=== PATIENT | female | born 1975 | race Caucasian/White ===

== ENCOUNTER 2024-05-13 06:50 | Observation (INO) | payer SELFPAY ==
--- OUTSIDE RECORDS SUMMARY | 2024-05-13 06:55 | XMS REPORT | Continuity of Care Document ---
Author Name Unknown Address [address] [place] [address] [facility] [place] Address [address] [place] [address] Care Team Providers Care Fabric Normalizer Name Role Phone Randall Michel Attending Clinician Unavailable Payers Payer Name Policy Type Policy Number Effective Date Expirati on Date Source [employer] 53 [id number] 2020 00:00:00 [facility] Problems Condition Name Condition Details Condition Category Status Onset Date Resolution Date Last Treatment Date Treating Clinician Comments Source [id number] Mixed hyperlipid emia Problem [facility] [id number] Primary hypertensi on Problem [facility] Anxiety disorder Anxiety disorder, unspecifie d Problem [facility] [id number] Seasonal allergies Problem [facility] [id number] Controlled mild persistent asthma with allergic rhinitis Problem [facility] Allergies, Adverse Reactions, Alerts Allergy Name Allergy Type Status Severity Reaction(s) Onset Date Inactive Date Treating Clinician Comments Source hydrochl orothiaz colby / lisinopr il hydrochl orothiaz colby / lisinopr il Active nausea and vomiting [facility] Social History Social Habit Start Date Stop Date Quantity Comments Source Sex Assigned At [facility] History of Tobacco Use [facility] Smoking Status Start Date Stop Date Source Unknown if ever smoked Commo n [facility] Never Smoker [facility] Medications Ordered Medication Name Filled Medication Name Start Date Stop Date Current Medication? Ordering Clinician Indication Dosage Frequency Signature (SIG) Comments Components Source Atorvastati n Calcium 20 MG Atorvastati n Calcium 20 MG 09-27 00:00: 00 No 1{table t} QD Atorvastat in Calcium 20 MG Losartan Potassium-H CTZ 100-12.5 MG Losartan Potassium-H CTZ 100-12.5 MG No 1{table t} QD Losartan Potassium- HCTZ 100-12.5 MG busPIRone HCl 30 MG busPIRone HCl 30 MG No 1{table t} BID busPIRone HCl 30 MG Immunizations Ordered Immunization Name Filled Immunization Name Date Status Comments Source Afluria Afluria 2021-01-07 11:32:00 Completed [facility] Afluria Afluria 2021-01-07 11:32:00 Completed [facility] Afluria Afluria 2021-01-07 11:32:00 Completed [facility] Adacel (Tdap) Adacel (Tdap) 2020-10-08 15:47:00 Completed [facility] Adacel (Tdap) Adacel (Tdap) 2020-10-08 15:47:00 Completed [facility] Adacel (Tdap) Adacel (Tdap) 2020-10-08 15:47:00 Completed [facility] Afluria Afluria Unknown Completed [facility] Adacel (Tdap) Adacel (Tdap) Unknown Completed Co on [facility] Afluria Afluria Unknown Completed [facility] Adacel (Tdap) Adacel (Tdap) Unknown Completed Co mmon [facility] Afluria Afluria Unknown Completed [facility] Adacel (Tdap) Adacel (Tdap) Unknown Completed Co [facility] Afluria Afluria Unknown Completed Common [facility] Adacel (Tdap) Adacel (Tdap) Unknown Completed Co [facility] Afluria Afluria Unknown Completed Common [facility] Adacel (Tdap) Adacel (Tdap) Unknown Completed Co [facility] Afluria Afluria Unknown Completed Common [facility] Adacel (Tdap) Adacel (Tdap) Unknown Completed Co [facility] Vital Signs Vital Name Observation Time Observation Value Comments S ource height 2024-03-07 08:00:00 60 [in_i] Commo n [facility] weight 2024-03-07 08:00:00 116 [lb_av] Comm on [facility] bmi 2024-03-07 08:00:00 22.65 kg/m2 Comm on [facility] height 2023-11-23 09:00:00 60 [in_i] Commo n [facility] weight 2023-11-23 09:00:00 121 [lb_av] Comm on [facility] bmi 2023-11-23 09:00:00 23.63 kg/m2 Comm on [facility] blood pressure systolic 2023-11-23 09:00:00 128 mm[Hg] Common [facility] blood pressure diastolic 2023-11-23 09:00:00 84 mm[Hg] Common [facility] height 2023-11-23 09:00:00 60 [in_i] Commo n [facility] weight 2023-11-23 09:00:00 121 [lb_av] Comm on [facility] bmi 2023-11-23 09:00:00 23.63 kg/m2 Comm on [facility] blood pressure systolic 2023-11-23 09:00:00 128 mm[Hg] Common [facility] blood pressure diastolic 2023-11-23 09:00:00 84 mm[Hg] Common [facility] height 2023-09-28 11:20:00 60 [in_i] Commo n [facility] weight 2023-09-28 11:20:00 124.0 [lb_av] Co [facility] temperature 2023-09-28 11:20:00 97.9 [degF] Com mon [facility] bmi 2023-09-28 11:20:00 24.21 kg/m2 Comm on [facility] oximetry 2023-09-28 11:20:00 99 % Commo n [facility] respiratory rate 2023-09-28 11:20:00 17 /min [facility] blood pressure systolic 2023-09-28 11:20:00 127 mm[Hg] Common [facility] blood pressure diastolic 2023-09-28 11:20:00 78 mm[Hg] [facility] height 2023-09-16 11:20:00 60 [in_i] Commo n [facility] weight 2023-09-16 11:20:00 127.0 [lb_av] Co [facility] temperature 2023-09-16 11:20:00 98.2 [degF] Com [facility] bmi 2023-09-16 11:20:00 24.8 kg/m2 Commo n [facility] oximetry 2023-09-16 11:20:00 99 % Commo n [facility] respiratory rate 2023-09-16 11:20:00 17 /min [facility] blood pressure systolic 2023-09-16 11:20:00 137 mm[Hg] [facility] blood pressure diastolic 2023-09-16 11:20:00 80 mm[Hg] Common [facility] height 2023-02-18 09:20:00 60 [in_i] Commo n [facility] weight 2023-02-18 09:20:00 143 [lb_av] Comm on [facility] bmi 2023-02-18 09:20:00 27.92 kg/m2 Comm on [facility] height 2023-01-19 13:00:00 60 [in_i] Commo n [facility] weight 2023-01-19 13:00:00 151.4 [lb_av] Co mmon [facility] temperature 2023-01-19 13:00:00 97.9 [degF] Com mon [facility] bmi 2023-01-19 13:00:00 29.57 kg/m2 Comm on [facility] oximetry 2023-01-19 13:00:00 98 % Commo n [facility] respiratory rate 2023-01-19 13:00:00 17 /min Common [facility] blood pressure systolic 2023-01-19 13:00:00 140 mm[Hg] Common [facility] blood pressure diastolic 2023-01-19 13:00:00 78 mm[Hg] Common [facility] height 2022-04-29 16:00:00 60 [in_i] Commo n [facility] weight 2022-04-29 16:00:00 149.0 [lb_av] Co mmon [facility] temperature 2022-04-29 16:00:00 97.9 [degF] Com mon [facility] bmi 2022-04-29 16:00:00 29.1 kg/m2 Commo n [facility] oximetry 2022-04-29 16:00:00 99 % Commo n [facility] respiratory rate 2022-04-29 16:00:00 18 /min Common [facility] blood pressure systolic 2022-04-29 16:00:00 138 mm[Hg] [facility] blood pressure diastolic 2022-04-29 16:00:00 88 mm[Hg] Common [facility] height 2021-10-28 16:20:00 60 [in_i] Commo n [facility] weight 2021-10-28 16:20:00 142.5 [lb_av] Co [facility] temperature 2021-10-28 16:20:00 98.1 [degF] Com [facility] bmi 2021-10-28 16:20:00 27.83 kg/m2 Comm on [facility] oximetry 2021-10-28 16:20:00 100 % Commo n [facility] respiratory rate 2021-10-28 16:20:00 18 /min [facility] blood pressure systolic 2021-10-28 16:20:00 139 mm[Hg] Common [facility] blood pressure diastolic 2021-10-28 16:20:00 87 mm[Hg] [facility] height 2021-06-11 09:00:00 60 [in_i] Commo n [facility] weight 2021-06-11 09:00:00 137.2 [lb_av] Co [facility] temperature 2021-06-11 09:00:00 97.9 [degF] Com [facility] bmi 2021-06-11 09:00:00 26.79 kg/m2 Comm on [facility] oximetry 2021-06-11 09:00:00 100 % Commo n [facility] respiratory rate 2021-06-11 09:00:00 18 /min [facility] blood pressure systolic 2021-06-11 09:00:00 128 mm[Hg] Common [facility] blood pressure diastolic 2021-06-11 09:00:00 80 mm[Hg] Common [facility] height 2021-02-10 13:00:00 60 [in_i] Commo n [facility] weight 2021-02-10 13:00:00 129.8 [lb_av] Co mmon [facility] temperature 2021-02-10 13:00:00 96.8 [degF] Com mon [facility] bmi 2021-02-10 13:00:00 25.35 kg/m2 Comm on [facility] oximetry 2021-02-10 13:00:00 97 % Commo n [facility] respiratory rate 2021-02-10 13:00:00 18 /min [facility] blood pressure systolic 2021-02-10 13:00:00 130 mm[Hg] [facility] blood pressure diastolic 2021-02-10 13:00:00 84 mm[Hg] [facility] height 2021-01-07 11:20:00 60 [in_i] Commo n [facility] weight 2021-01-07 11:20:00 126.4 [lb_av] Co on [facility] temperature 2021-01-07 11:20:00 97.2 [degF] Com [facility] bmi 2021-01-07 11:20:00 24.68 kg/m2 Comm on [facility] oximetry 2021-01-07 11:20:00 99 % Commo n [facility] respiratory rate 2021-01-07 11:20:00 18 /min [facility] blood pressure systolic 2021-01-07 11:20:00 140 mm[Hg] [facility] blood pressure diastolic 2021-01-07 11:20:00 100 mm[Hg] [facility] Encounters Start Date/Time End Date/Time Encounter Type Admission Type Attending [facility] Care Facility Care Department Encounter ID Source 2024-05-08 11:37:00 Outpatient Randall Michel [facility] [id number] [facility] 2024-05-04 11:02:00 Outpatient Michel, Avnee [facility]C [facility] [id number] [facility] 2024-05-03 08:41:00 Outpatient Michel, Avnee [facility]MLC [facility] [id number] [facility] 2024-05-01 14:36:00 Outpatient Michel, Avnee [facility]MLC [facility] [id number] [facility] 2023-11-24 15:52:00 Outpatient Michel, Avnee [facility]LMLC ST[facility] [id number] [facility] 2023-11-18 16:17:00 Outpatient Michel, Avnee STLMLC ST[facility] [id number] [facility] 2023-08-10 10:56:00 Outpatient Michel, Avnee STLMLC ST[facility] [id number] [facility] 2023-08-06 11:11:00 Outpatient Michel, Avnee [facility]LMLC ST[facility] [id number] [facility] 2023-02-18 08:44:00 Outpatient Michel, Avnee [facility]MLC ST[facility] [id number] [facility] 2023-02-16 09:38:01 Outpatient Michel, Avnee [facility]MLC [facility] [id number] [facility] 2023-01-15 13:41:00 Outpatient Michel, Avnee [facility]MLC ST[facility] [id number] [facility] 2022-05-04 14:09:01 Outpatient Michel, Avnee STLMLC ST[facility] [id number] [facility] 2022-04-27 08:06:00 Outpatient Michel, Avnee STLMLC ST[facility] [id number] [facility] 2021-10-27 14:59:02 Outpatient Michel, Avnee STLMLC ST[facility] [id number] [facility] 2021-06-11 09:15:03 Outpatient Michel, Avnee [facility]LMLC ST[facility] [id number] [facility] 2021-04-02 14:05:10 Outpatient Michel, Avnee STLMLC ST[facility] [id number] [facility] 2021-04-02 13:34:23 Outpatient Michel, Avnee [facility]MLC ST[facility] [id number] [facility] 2021-04-02 13:33:56 Outpatient Michel, Avnee STLMLC ST[facility]C [id number] [facility] 2021-04-02 13:31:38 Outpatient Michel, Avnee STLMLC ST[facility]C [id number] [facility] 2021-04-02 13:30:30 Outpatient Michel, Avnee STLMLC ST[facility] [id number] [facility] 2021-04-02 13:24:50 Outpatient [facility] ST[facility] [id number] [facility] 2024-03-07 00:00:00 2024-03-07 00:00:00 OFFICE VISIT ESTAB PT LEVEL 4 [facility]LMLC STLMLC [id number] [facility] 2024-01-14 00:00:00 2024-01-14 00:00:00 (TEL) STLMLC STL[facility]C [id number] [facility] 2024-01-03 00:00:00 2024-01-03 00:00:00 (TEL) STLMLC STL[facility]C [id number] [facility] 2023-12-05 00:00:00 2023-12-05 00:00:00 (TEL) STLMLC STL[facility]C [id number] [facility] 2023-11-23 00:00:00 2023-11-23 00:00:00 OFFICE VISIT ESTAB PT LEVEL 3 [facility]LMLC STLMLC [id number] [facility] 2023-10-18 00:00:00 2023-10-18 00:00:00 (TEL) STLMLC STLMLC [id number] [facility] 2023-10-13 00:00:00 2023-10-13 00:00:00 (TEL) STLMLC STLMLC [id number] [facility] 2023-09-28 00:00:00 2023-09-28 00:00:00 OFFICE VISIT ESTAB PT LEVEL 4 [facility]C STL[facility]C [id number] [facility] 2023-09-27 00:00:00 2023-09-27 00:00:00 (TEL) STLMLC STLMLC [id number] [facility] 2023-09-21 00:00:00 2023-09-21 00:00:00 (TEL) STLMLC STLMLC [id number] [facility] 2023-09-16 00:00:00 2023-09-16 00:00:00 PREV VISIT EST AGE 40-64 STLMLC STLMLC [id number] [facility] 2023-09-08 00:00:00 2023-09-08 00:00:00 (TEL) STLMLC STLMLC [id number] [facility] 2023-07-05 00:00:00 2023-07-05 00:00:00 (TEL) STLMLC STLMLC [id number] [facility] 2023-02-18 00:00:00 2023-02-18 00:00:00 OFFICE VISIT ESTAB PT LEVEL 3 STLMLC STL[facility]C [id number] [facility] 2023-01-21 00:00:00 2023-01-21 00:00:00 (TEL) STLMLC STLMLC [id number] [facility] 2023-01-19 00:00:00 2023-01-19 00:00:00 OFFICE VISIT ESTAB PT LEVEL 3 [facility]C STL[facility]C [id number] [facility] 2022-04-29 00:00:00 2022-04-29 00:00:00 OFFICE VISIT ESTAB PT LEVEL 3 [facility]C STL[facility]C [id number] [facility] 2021-10-28 00:00:00 2021-10-28 00:00:00 (WELLNESS) Wellness Visit STLMLC STLMLC [id number] [facility] 2021-10-13 00:00:00 2021-10-13 00:00:00 (TEL) STLMLC STLMLC [id number] [facility] 2021-10-08 00:00:00 2021-10-08 00:00:00 (TEL) STLMLC STLMLC [id number] [facility] 2021-06-11 00:00:00 2021-06-11 00:00:00 OFFICE VISIT EST PT LEVEL 3 STLMLC STLMLC [id number] [facility] 2021-06-09 00:00:00 2021-06-09 00:00:00 (TEL) STLMLC STLMLC [id number] [facility] 2021-02-10 00:00:00 2021-02-10 00:00:00 OFFICE VISIT EST PT LEVEL 3 STL[facility]C STL[facility]C [id number] [facility] 2021-01-07 00:00:00 2021-01-07 00:00:00 OFFICE VISIT ESTAB PT LEVEL 4 STLMLC STLMLC [id number] [facility] 2020-10-22 00:00:00 2020-10-22 00:00:00 Outpatient [facility]C ST[facility] [id number] [facility] 2020-10-22 00:00:00 2020-10-22 00:00:00 Outpatient [facility]C ST[facility] [id number] [facility] 2020-10-14 00:00:00 2020-10-14 00:00:00 Outpatient [facility]C ST[facility]C [id number] [facility] 2020-10-08 00:00:00 2020-10-08 00:00:00 Outpatient [facility]C STL[facility]C [id number] [facility] 2020-10-08 00:00:00 2020-10-08 00:00:00 Outpatient [facility] [id number] [facility] 2020-09-16 00:00:00 2020-09-16 00:00:00 Outpatient [facility] [id number] [facility] Results Test Description Test Time Test Comments Results Result Co mments Source CBC W/AUTO [id number] 00:00:00* Test Item Value Reference Range Interpretation Comme nts NUCLEATED RBCS (test code = 04394-1) 0.0 /100 WBC'S See_Comment [Automated [employer]] The system which generated this result transmitted reference range: 0.0 /100 WBC'S. The reference range was not used to interpret this result as normal/abnormal. ABSOLUTE EOSINOPHILS (test code = 76481-2) 0.06 K/UL See_Comment [Automated [employer]] The system which generated this result transmitted reference range: 0.00-0.50 K/UL. The reference range was not used to interpret this result as normal/abnormal. ABSOLUTE LYMPHOCYTES (test code = 12169-9) 1.02 K/UL See_Comment [Automated [employer]] The system which generated this result transmitted reference range: 1.00-4.00 K/UL. The reference range was not used to interpret this result as normal/abnormal. ABSOLUTE MONOCYTES (test code = 43747-3) 0.34 K/UL See_Comment [Automated [employer]] The system which generated this result transmitted reference range: 0.20-1.00 K/UL. The reference range was not used to interpret this result as normal/abnormal. ABSOLUTE NEUTROPHILS (test code = 65415-8) 2.52 K/UL See_Comment [Automated [employer]] The system which generated this result transmitted reference range: 1.50-7.50 K/UL. The reference range was not used to interpret this result as normal/abnormal. BASOPHILS (test code = 51981-7) 1.0 % EOSINOPHILS (test code = 95283-3) 1.5 % HEMATOCRIT (test code = 32876-8) 39.9 % See_Comment [Automated messa ge] The system which generated this result transmitted reference range: 34.0-45.0 %. The reference range was not used to interpret this result as normal/abnormal. HEMOGLOBIN (test code = 718-7) 13.9 G/DL See_Comment [Automated messa ge] The system which generated this result transmitted reference range: 11.5-15.5 G/DL. The reference range was not used to interpret this result as normal/abnormal. LYMPHOCYTES (test code = 48481-3) 25.5 % MCH (test code = 25773-9) 32.4 PG See_Comment [Automated messa ge] The system which generated this result transmitted reference range: 25.0-33.0 PG. The reference range was not used to interpret this result as normal/abnormal. MCHC (test code = 66198-4) 34.8 G/DL See_Comment [Automated messa ge] The system which generated this result transmitted reference range: 31.0-36.0 G/DL. The reference range was not used to interpret this result as normal/abnormal. MCV (test code = 88231-4) 93.0 fL See_Comment [Automated messa ge] The system which generated this result transmitted reference range: 80.0-99.0 fL. The reference range was not used to interpret this result as normal/abnormal. MONOCYTES (test code = 25420-9) 8.5 % NEUTROPHILS (test code = 51179-5) 63.0 % PLATELET COUNT (test code = 30949-3) 192 K/UL See_Comment [Automated messa ge] The system which generated this result transmitted reference range: 130-400 K/UL. The reference range was not used to interpret this result as normal/abnormal. RBC (test code = 02212-0) 4.29 M/UL See_Comment [Automated messa ge] The system which generated this result transmitted reference range: 3.80-5.40 M/UL. The reference range was not used to interpret this result as normal/abnormal. RDW (test code = 35754-5) 12.2 % See_Comment [Automated messa ge] The system which generated this result transmitted reference range: 11.5-15.0 %. The reference range was not used to interpret this result as normal/abnormal. WBC (test code = 68084-0) 4.0 K/UL See_Comment [Automated messa ge] The system which generated this result transmitted reference range: 3.5-11.0 K/UL. The reference range was not used to interpret this result as normal/abnormal. CBC W/AUTO [id number] 00:00:00* Test Item Value Reference Range Interpretation Comme nts NUCLEATED RBCS (test code = 22506-8) 0.0 /100 WBC'S See_Comment [Automated messa ge] The system which generated this result transmitted reference range: 0.0 /100 WBC'S. The reference range was not used to interpret this result as normal/abnormal. ABSOLUTE EOSINOPHILS (test code = 78659-4) 0.09 K/UL See_Comment [Automated messa ge] The system which generated this result transmitted reference range: 0.00-0.50 K/UL. The reference range was not used to interpret this result as normal/abnormal. ABSOLUTE LYMPHOCYTES (test code = 25457-8) 1.35 K/UL See_Comment [Automated messa ge] The system which generated this result transmitted reference range: 1.00-4.00 K/UL. The reference range was not used to interpret this result as normal/abnormal. ABSOLUTE MONOCYTES (test code = 49861-1) 0.59 K/UL See_Comment [Automated messa ge] The system which generated this result transmitted reference range: 0.20-1.00 K/UL. The reference range was not used to interpret this result as normal/abnormal. ABSOLUTE NEUTROPHILS (test code = 56646-1) 4.21 K/UL See_Comment [Automated messa ge] The system which generated this result transmitted reference range: 1.50-7.50 K/UL. The reference range was not used to interpret this result as normal/abnormal. BASOPHILS (test code = 39856-5) 0.9 % EOSINOPHILS (test code = 41464-5) 1.4 % HEMATOCRIT (test code = 55908-8) 38.0 % See_Comment [Automated messa ge] The system which generated this result transmitted reference range: 34.0-45.0 %. The reference range was not used to interpret this result as normal/abnormal. HEMOGLOBIN (test code = 718-7) 12.9 G/DL See_Comment [Automated messa ge] The system which generated this result transmitted reference range: 11.5-15.5 G/DL. The reference range was not used to interpret this result as normal/abnormal. LYMPHOCYTES (test code = 66328-8) 21.4 % MCH (test code = 67591-2) 32.3 PG See_Comment [Automated messa ge] The system which generated this result transmitted reference range: 25.0-33.0 PG. The reference range was not used to interpret this result as normal/abnormal. MCHC (test code = 51620-0) 33.9 G/DL See_Comment [Automated messa ge] The system which generated this result transmitted reference range: 31.0-36.0 G/DL. The reference range was not used to interpret this result as normal/abnormal. MCV (test code = 04456-2) 95.0 fL See_Comment [Automated messa ge] The system which generated this result transmitted reference range: 80.0-99.0 fL. The reference range was not used to interpret this result as normal/abnormal. MONOCYTES (test code = 34997-3) 9.3 % NEUTROPHILS (test code = 16494-9) 66.7 % PLATELET COUNT (test code = 18232-1) 256 K/UL See_Comment [Automated messa ge] The system which generated this result transmitted reference range: 130-400 K/UL. The reference range was not used to interpret this result as normal/abnormal. RBC (test code = 23366-2) 4.00 M/UL See_Comment [Automated messa ge] The system which generated this result transmitted reference range: 3.80-5.40 M/UL. The reference range was not used to interpret this result as normal/abnormal. RDW (test code = 86751-7) 12.3 % See_Comment [Automated messa ge] The system which generated this result transmitted reference range: 11.5-15.0 %. The reference range was not used to interpret this result as normal/abnormal. WBC (test code = 41857-3) 6.3 K/UL See_Comment [Automated messa ge] The system which generated this result transmitted reference range: 3.5-11.0 K/UL. The reference range was not used to interpret this result as normal/abnormal.
[2024-05-13] MEDS ORDERED: PANTOPRAZOLE 40 MG INJ ONE (07:28)
[2024-05-13] MEDS ORDERED: MAGNES/ALUMIN/SIMET 30ML UCUP ONE (07:28)
[2024-05-13] MEDS ORDERED: ASPIRIN 81 MG CHEWABLE TABLET ONE (07:29)
[2024-05-13] MEDS ORDERED: LIDOCAINE VISCOUS 2% 10ML ORAL SOLN ONE (07:29)
--- NOTE | 2024-05-13 07:29 | EDPHYS ---
Physician Documentation [facility] Name: Elsie Matamoros Age: 48 yrs Sex: Female : 1975 Arrival Date: 05/13/2024 Time: 06:50 Bed 5 Private MD: ED Physician Tiago Fishman HPI: 05/13 07:26 This 48 yrs old Female presents to ER via Ambulatory with complaints of mouna REFLUX, CHEST BURING. 07:26 The patient or guardian reports chest pain that is located primarily in the substernal mouna area. Onset: last night. The pain does not radiate. Associated signs and symptoms: The patient has no apparent associated signs or symptoms. The chest pain is described as burning. Severity of pain: At its worst the pain was moderate in the emergency department the pain is unchanged. The patient has not experienced similar symptoms in the past. Historical: - Allergies: 07:19 Metoprolol; abdominal pain; hb - Home Meds: 07:19 lisinopril-hydrochlorothiazide oral [Active]; hb 07:20 Buspirone Oral [Active]; hb - PMHx: 07:19 HTN; hb - Immunization history:: Adult Immunizations up to date. - Infectious Disease History:: Denies. - Social history:: Smoking status: Patient denies any tobacco usage or history of. - Family history:: not pertinent. ROS: 07:26 Constitutional: Negative for fever, chills, and weight loss, Eyes: Negative for injury, mouna pain, redness, and discharge, ENT: Negative for injury, pain, and discharge, Neck: Negative for injury, pain, and swelling, Respiratory: Negative for shortness of breath, cough, wheezing, and pleuritic chest pain, Abdomen/GI: Negative for abdominal pain, nausea, vomiting, diarrhea, and constipation, Back: Negative for injury and pain, : Negative for injury, bleeding, discharge, and swelling, MS/Extremity: Negative for injury and deformity, Skin: Negative for injury, rash, and discoloration, Neuro: Negative for headache, weakness, numbness, tingling, and seizure, Psych: Negative for depression, anxiety, suicide ideation, homicidal ideation, and hallucinations, Allergy/Immunology: Negative for hives, rash, and allergies, Endocrine: Negative for neck swelling, polydipsia, polyuria, polyphagia, and marked weight changes, Hematologic/Lymphatic: Negative for swollen nodes, abnormal bleeding, and unusual bruising, 07:26 Cardiovascular: Positive for chest pain, palpitations, Exam: 07:26 Constitutional: This is a well developed, well nourished patient who is awake, alert, mouna and in no acute distress. Head/Face: Normocephalic, atraumatic. Eyes: Pupils equal round and reactive to light, extra-ocular motions intact. Lids and lashes normal. Conjunctiva and sclera are non-icteric and not injected. Cornea within normal limits. Periorbital areas with no swelling, redness, or edema. ENT: Nares patent. No nasal discharge, no septal abnormalities noted. Tympanic membranes are normal and external auditory canals are clear. Oropharynx with no redness, swelling, or masses, exudates, or evidence of obstruction, uvula midline. Mucous membranes moist. Neck: Trachea midline, no thyromegaly or masses palpated, and no cervical lymphadenopathy. Supple, full range of motion without nuchal rigidity, or vertebral point tenderness. No Meningismus. Chest/axilla: Normal chest wall appearance and motion. Nontender with no deformity. No lesions are appreciated. Cardiovascular: Regular rate and rhythm with a normal S1 and S2. No gallops, murmurs, or rubs. Normal PMI, no JVD. No pulse deficits. Respiratory: Lungs have equal breath sounds bilaterally, clear to auscultation and percussion. No rales, rhonchi or wheezes noted. No increased work of breathing, no retractions or nasal flaring. Abdomen/GI: Soft, non-tender, with normal bowel sounds. No distension or tympany. No guarding or rebound. No evidence of tenderness throughout. Back: No spinal tenderness. No costovertebral tenderness. Full range of motion. Skin: Warm, dry with normal turgor. Normal color with no rashes, no lesions, and no evidence of cellulitis. MS/ Extremity: Pulses equal, no cyanosis. Neurovascular intact. Full, normal range of motion., bilateral aka Neuro: Awake and alert, GCS 15, oriented to person, place, time, and situation. Cranial nerves II-XII grossly intact. Motor strength 5/5 in all extremities. Sensory grossly intact. Cerebellar exam normal. Normal gait. Psych: Awake, alert, with orientation to person, place and time. Behavior, mood, and affect are within normal limits. 07:26 ECG was reviewed by the Attending Physician. Vital Signs: 07:13 BP 186 / 83; Pulse 74; Resp 18; Temp 98.2(O); Pulse Ox 100% on R/A; Weight 53.07 kg; hb Height 5 ft. 0 in. ; Pain 8/10; 08:00 BP 117 / 80; Pulse 59; Resp 18; Pulse Ox 100% on R/A; db 09:00 BP 141 / 75; Pulse 63; Resp 18; Pulse Ox 100% on R/A; db 10:00 BP 156 / 82; Pulse 65; Resp 18; Pulse Ox 100% on R/A; db 07:13 Body Mass Index 22.85 (53.07 kg, 152.4 cm) hb 07:13 Pain Scale: Adult hb MDM: 07:10 Medical Screening Exam initiated mouna 07:31 Differential diagnosis: abnormal EKG, acute myocardial infarction, anxiety, chest wall mouna pain, Cholelithiasis costochondritis, esophagitis, herpes zoster, hiatal hernia, pancreatitis, peptic ulcer disease, pericarditis, pneumonia, pulmonary embolus, stable angina, unstable angina. HEART Score: History: Slightly Suspicious (0), ECG: Normal (0), Age: > 45 and < 65 years (1), Risk Factors: 1 or 2 risk factors (1), [Hypertension] [+ Family HX] Troponin: < or = 1 x Normal Limit (0). The patient was given aspirin in the Emergency Department. MAXIM Risk Score: 1 - Recent [<24hrs] Severe Angina, TOTAL SCORE = 1. Data reviewed: vital signs, nurses notes, lab test result(s), EKG, radiologic studies, plain films. Consideration of Admission/Observation Patient was admitted/placed on observation. Escalation of care including admission/observation considered. Independent interpretation of the following test(s) in the Emergency Department EKG: See my EKG interpretation above. Test considered but Not performed: Ultrasound no 2 . 05/13 07:12 Order name: Basic Metabolic Panel; Complete Time: 08:35 [facility] 05/13 07:12 Order name: CBC with Diff; Complete Time: 08:35 [facility] 05/13 07:12 Order name: LFT's; Complete Time: 08:35 mouna 05/13 07:12 Order name: Magnesium; Complete Time: 08:35 mouna 05/13 07:12 Order name: NT PRO-BNP; Complete Time: 08:35 mouna 05/13 07:12 Order name: PT-INR; Complete Time: 08:35 mouna 05/13 07:12 Order name: Troponin HS; Complete Time: 08:35 mouna 05/13 07:12 Order name: Lipase; Complete Time: 08:35 mouna 05/13 07:12 Order name: Urinalysis w/ reflexes; Complete Time: 08:35 mouna 05/13 10:20 Order name: Basic Metabolic Panel EDMS 05/13 10:20 Order name: CBC with Automated Diff EDMS 05/13 10:20 Order name: Magnesium EDMS 05/13 10:20 Order name: Phosphorus EDMS 05/13 10:20 Order name: Troponin High Sensitivity EDMS 05/13 10:20 Order name: Troponin High Sensitivity EDMS 05/13 10:20 Order name: Troponin High Sensitivity EDMS 05/13 10:33 Order name: Hemoglobin A1c EDMS 05/13 10:33 Order name: Lipid Profile EDMS 05/13 10:33 Order name: T4 Free EDMS 05/13 10:33 Order name: Thyroid Stimulating Hormone EDMS 05/13 07:12 Order name: XRAY Chest (1 view); Complete Time: 08:35 mouna 05/13 10:33 Order name: Echo with Doppler EDMS 05/13 07:12 Order name: Cardiac monitoring; Complete Time: 07:25 mouna 05/13 07:12 Order name: EKG - Nurse/Tech; Complete Time: 07:25 mouna 05/13 07:12 Order name: IV Saline Lock; Complete Time: 07:41 mouna 05/13 07:12 Order name: Labs collected and sent; Complete Time: 07:41 mouna 05/13 07:12 Order name: O2 Per Protocol; Complete Time: 07:25 mouna 05/13 07:12 Order name: O2 Sat Monitoring; Complete Time: 07:25 [facility] EC:26 Rate is 64 beats/min. Rhythm is regular. QRS [place] is Normal. [place] interval is normal. QRS mouna interval is normal. QT interval is normal. No Q waves. T waves are Normal. No ST changes noted. Clinical impression: NSR w/ Non-specific ST/T Changes and No evidence of ischemia. Interpreted by me. Reviewed by me. Administered Medications: 07:32 Drug: Pantoprazole IVP 40 mg IVP once Route: IVP; Site: right antecubital; db 12:18 Follow up: Response: No adverse reaction db 07:32 Drug: Aspirin PO Chewable Tablet 324 mg PO once; 81 mg tablets x 4 Route: PO; db 12:17 Follow up: Response: No adverse reaction db 07:32 Drug: GI Cocktail without - (Maalox PO 30 ml, Lidocaine Mucous Membrane 2 % 15 db ml) PO once Route: PO; 12:00 Follow up: Response: No adverse reaction db 07:59 Drug: Thiamine IV 100 mg IV at bolus once Route: IV; Rate: bolus; Site: right db antecubital; 12:17 Follow up: Response: No adverse reaction; IV Status: Completed infusion; IV Intake: db 200ml Disposition Summary: 05/13/24 07:29 Hospitalization Ordered Notes: Hospitalization Status: Observation mouna Provider: Jose Hatch cha Condition: Stable mouna Problem: new mouna Symptoms: have improved mouna Bed/Room Type: Standard [facility] Location: [facility] ER HOLD(05/13/24 12:14) Room Assignment: (05/13/24 12:14) Diagnosis - Chest pain, unspecified mouna - Functional dyspepsia mouna Forms: - Medication Reconciliation Form mouna - SBAR form mouna - Leadership Thank You Letter mouna Signatures: Dispatcher [employer] Tiago Zayas MD MD cha Baxter, Heather RN RN Madison Lau RN RN Derek Metz Corrections: (The following items were deleted from the chart) 07:13 07:13 BASIC METABOLIC PANEL+C.LAB.BRZ ordered. EDMS EDMS 07:13 07:13 CBC+H.LAB.BRZ ordered. EDMS EDMS 07:13 07:13 HEPATIC FUNCTION+C.LAB.BRZ ordered. EDMS EDMS 07:13 07:13 MAGNESIUM+C.LAB.BRZ ordered. EDMS EDMS 07:13 07:13 PROBNP+C.LAB.BRZ ordered. EDMS EDMS 07:13 07:13 PROTIME (+INR)+COAG.LAB.BRZ ordered. EDMS EDMS 07:13 07:13 Troponin High Sensitivity+C.LAB.BRZ ordered. EDMS EDMS 07:13 07:13 LIPASE+C.LAB.BRZ ordered. EDMS EDMS 07:13 07:13 Urinalysis+U.LAB.BRZ ordered. EDMS EDMS 07:13 07:13 Chest Single View+RAD.RAD.BRZ ordered. EDMS EDMS 07:20 07:15 Allergies: Metoprolol; hb hb 11:51 07:29 mouna ty 12:11 10:20 Basic Metabolic Panel ordered. EDMS EDMS 12:11 10:20 Magnesium ordered. EDMS EDMS 12:12 10:20 CBC with Automated Diff ordered. EDMS EDMS 12:12 10:20 Phosphorus ordered. EDMS EDMS 12:12 10:33 Hemoglobin A1c ordered. EDMS EDMS 12:12 10:33 Lipid Profile ordered. EDMS EDMS 12:12 10:33 T4 Free ordered. EDMS EDMS 12:12 10:33 Thyroid Stimulating Hormone ordered. EDMS EDMS 12:14 07:29 Telemetry/MedSurg (observation) mouna hb 12:14 11:51 413 ty hb
--- NOTE | 2024-05-13 07:29 | ER ---
Nurse's Notes [facility] Name: Elsie Matamoros Age: 48 yrs Sex: Female : 1975 Arrival Date: 05/13/2024 Time: 06:50 Bed 5 Private MD: Diagnosis: Chest pain, unspecified;Functional dyspepsia Presentation: 05/13 07:13 Chief complaint: Burning chest pain that radiates to neck since last night. Coronavirus hb screen: At this time, the client does not indicate any symptoms associated with coronavirus-19. Ebola Screen: No symptoms or risks identified at this time. Initial Sepsis Screen: Does the patient meet any 2 criteria? No. Patient's initial sepsis screen is negative. Does the patient have a suspected source of infection? No. Patient's initial sepsis screen is negative. Risk Assessment: Do you want to hurt yourself or someone else? Patient reports desire/thoughts of hurting themselves or someone else. Provider notified. Onset of symptoms was May 12, 2024. 07:13 Method Of Arrival: Ambulatory hb 07:13 Acuity: RICCARDO 3 hb Triage Assessment: 08:00 General: Appears in no apparent distress. comfortable, Behavior is calm, cooperative. db Neuro: Level of Consciousness is awake, alert, obeys commands, Oriented to person, place, time, situation. Respiratory: Airway is patent Respiratory effort is even, unlabored, Respiratory pattern is regular, symmetrical. 10:00 General: Appears. db Historical: - Allergies: 07:19 Metoprolol; abdominal pain; hb - Home Meds: 07:19 lisinopril-hydrochlorothiazide oral [Active]; hb 07:20 Buspirone Oral [Active]; hb - PMHx: 07:19 HTN; hb - Immunization history:: Adult Immunizations up to date. - Infectious Disease History:: Denies. - Social history:: Smoking status: Patient denies any tobacco usage or history of. - Family history:: not pertinent. Screenin:00 [facility] ED Fall Risk Assessment (Adult) History of falling in the last 3 months, db including since admission No falls in past 3 months (0 pts) Confusion or Disorientation No (0 pts) Intoxicated or Sedated No (0 pts) Impaired Gait No (0 pts) Mobility Assist Device Used No (0 pt) Altered Elimination No (0 pt) Score/Fall Risk Level 0 - 2 = Low Risk Oriented to surroundings, Maintained a safe environment. Abuse screen: Denies threats or abuse. Denies injuries from another. Nutritional screening: No deficits noted. Tuberculosis screening: No symptoms or risk factors identified. Assessment: 07:42 Reassessment: Patient appears in no apparent distress at this time. Patient and/or db family updated on plan of care and expected duration. Pain level reassessed. Patient is alert, oriented x 3, equal unlabored respirations, skin warm/dry/pink. General: Appears in no apparent distress. comfortable, Behavior is calm, cooperative. Pain: Complains of pain in epigastric area. Pain: Pain Quality of pain is described as burning. Neuro: Level of Consciousness is awake, alert, obeys commands, Oriented to person, place, time, situation. Respiratory: Airway is patent Respiratory effort is even, unlabored, Respiratory pattern is regular, symmetrical. GI: Abdomen is non-distended. 09:00 Reassessment: Patient appears in no apparent distress at this time. Patient and/or db family updated on plan of care and expected duration. Pain level reassessed. Patient is alert, oriented x 3, equal unlabored respirations, skin warm/dry/pink. 10:00 Reassessment: Patient appears in no apparent distress at this time. Patient and/or db family updated on plan of care and expected duration. Pain level reassessed. Patient is alert, oriented x 3, equal unlabored respirations, skin warm/dry/pink. 11:30 Reassessment: Patient appears in no apparent distress at this time. Patient and/or db family updated on plan of care and expected duration. Pain level reassessed. Patient is alert, oriented x 3, equal unlabored respirations, skin warm/dry/pink. 12:00 Reassessment: PATIENT REQUESTS TO LEAVE AMA. SIGNED AMA FORM AND EDUCATED AND SPOKE db WITH [facility] PROVIDER. Vital Signs: 07:13 BP 186 / 83; Pulse 74; Resp 18; Temp 98.2(O); Pulse Ox 100% on R/A; Weight 53.07 kg; hb Height 5 ft. 0 in. ; Pain 8/10; 08:00 BP 117 / 80; Pulse 59; Resp 18; Pulse Ox 100% on R/A; db 09:00 BP 141 / 75; Pulse 63; Resp 18; Pulse Ox 100% on R/A; db 10:00 BP 156 / 82; Pulse 65; Resp 18; Pulse Ox 100% on R/A; db 07:13 Body Mass Index 22.85 (53.07 kg, 152.4 cm) hb 07:13 Pain Scale: Adult hb ED Course: 06:57 Patient arrived in ED. gm2 07:10 Tiago Fishman MD is Attending Physician. mouna 07:14 Triage completed. hb 07:19 Arm band placed on. hb 07:28 Jose Hatch MD is Hospitalizing Provider. mouna 07:29 Initial lab(s) drawn, by me, sent to lab. Urine collected: clean catch specimen, clear, db EKG done, by ED staff. Inserted saline lock: 20 gauge in right antecubital area, using aseptic technique. Blood collected. Flushed with 10 mL NS. 07:41 Madison Jesus, RN is Primary Nurse. db 07:43 Patient has correct armband on for positive identification. Bed in low position. Call db light in reach. Side rails up X 1. Client placed on continuous cardiac and pulse oximetry monitoring. NIBP monitoring applied. residential monitor on. Pulse ox on. NIBP on. Warm blanket given. Pillow given. 08:05 XRAY Chest (1 view) In Process Unspecified. EDMS 11:30 Provided Education on: admission. db 11:30 No provider procedures requiring assistance completed. Patient admitted, IV remains in db place. Administered Medications: 07:32 Drug: Pantoprazole IVP 40 mg IVP once Route: IVP; Site: right antecubital; db 12:18 Follow up: Response: No adverse reaction db 07:32 Drug: Aspirin PO Chewable Tablet 324 mg PO once; 81 mg tablets x 4 Route: PO; db 12:17 Follow up: Response: No adverse reaction db 07:32 Drug: GI Cocktail without - (Maalox PO 30 ml, Lidocaine Mucous Membrane 2 % 15 db ml) PO once Route: PO; 12:00 Follow up: Response: No adverse reaction db 07:59 Drug: Thiamine IV 100 mg IV at bolus once Route: IV; Rate: bolus; Site: right db antecubital; 12:17 Follow up: Response: No adverse reaction; IV Status: Completed infusion; IV Intake: db 200ml Medication: 09:00 VIS not applicable for this client. db Intake: 12:17 IV: 200ml; Total: 200ml. db Outcome: 07:29 Decision to Hospitalize by Provider. mouna 11:30 Instructed on the need for admit, db 12:10 Admitted to ER Hold. Please see [facility] for further documentation. db 12:10 Condition: stable 12:14 Patient left the ED. Signatures: Dispatcher [employer] EDMS Tiago Fishman MD MD cha Baxter, Heather, RN RN Candace Rutherford RN RN jl7 Madison Jesus, RN RN Jaclyn Clifton gm2 Corrections: (The following items were deleted from the chart) 07:20 07:15 Allergies: Metoprolol; hb hb 11:53 11:39 Reassessment: Dr. Hatch at bedside discussing POC jl7 jl7
[2024-05-13] MEDS ORDERED: THIAMINE 200 MG/2 ML INJ ONE (07:51)
[2024-05-13] MEDS ORDERED: NA CHLORIDE 0.9% 500 ML ONE (07:51)
[2024-05-13 07:53] LABS: Absolute Lymphocytes (CBC) 1.2 K/uL (0.7-4.9); Absolute Monocytes 0.2 K/uL (0.1-1.3); Absolute Neutrophil 2.6 K/uL (1.8-8.0); Basophils % 1.1 % (0-1.3); Eosinophils % 1.1 % (0-4.4); Hematocrit 38.6 % (36.0-45.0); Lymphocytes % 28.2 % (15.3-44.8); MCH 31.9 pg (27.0-35.0); MCHC 33.7 g/dL (32.0-36.0); MCV 94.7 fL (80-100); MPV 8.7 fL (7.6-11.3); Neutrophils % 63.6 % (41.7-73.7); Nucleated Red Blood Cells % 0.1 % (0-0); Platelets 221 thou/uL (152-406); RBC Red Blood Cell Count 4.07 M/uL (3.86-4.86); Red Cell Distribution Width 12.8 % (12.1-15.2)
[2024-05-13 07:54] LABS: PT Prothrombin Time 11.8 SECONDS (10.0-13.0); Protime INR 1.04
[2024-05-13 08:01] LABS: ALT/SGPT 21 U/L (13-56); AST/SGOT 15 U/L (15-37); Albumin 3.9 g/dL (3.4-5.0); Albumin/Globulin Ratio 1.1 (1.1-1.8); Alkaline Phosphatase 68 U/L (45-117); Anion Gap 9.8 mEq/L (5.0-15.0); BUN Blood Urea Nitrogen 11 mg/dL (7-18); Bicarbonate 29 mEq/L (21-32); Bilirubin Direct 0.2 mg/dL (0-0.2); Bilirubin Indirect, Calculated 0.6 mg/dL (0.2-0.8); Bilirubin Total 0.8 mg/dL (0.2-1.0); Globulin 3.5 g/dL (2.3-3.5); Glomerular Filtration Rate 73 ml/min (=/>90); Glucose Level 107 mg/dL (74-106); Lipase 37 U/L (13-75); Magnesium 1.9 mg/dL (1.6-2.4); NT PRO-BNP 81 pg/mL (<125); Potassium 3.8 mEq/L (3.5-5.1); Protein, Total 7.4 g/dL (6.4-8.2); Sodium Level 137 mEq/L (136-145)
[2024-05-13 08:02] LABS: Troponin High Sensitivity < 3.0 pg/mL (<58.9)
[2024-05-13 08:03] LABS: Specific Gravity 1.006 (1.005-1.030); Sqamous Epithelial <5 /HPF (None Seen); Urine Bacteria >50 /HPF (<20); Urine Bilirubin NEGATIVE (Negative); Urine Blood Negative (Negative); Urine Clarity Extremely Turbid (Clear); Urine Color Colorless (Yellow); Urine Culture Reflex Order NOT NEEDED; Urine Glucose NEGATIVE (Negative); Urine Ketones NEGATIVE (Negative); Urine Microscopic Reflex YN ORDER UMIC; Urine Nitrite NEGATIVE (Negative); Urine Protein NEGATIVE (Negative); Urine RBC <5 /HPF (None Seen); Urine Urobilinogen Normal (Normal); Urine WBC <5 /HPF (<5); Urine pH 7.5 (5.0-7.0)
--- NOTE | 2024-05-13 08:17 | RAD REPORT ---
EXAM: Chest Single View HISTORY: 48 years Female CHEST PAIN COMPARISON: None. FINDINGS: LUNGS/PLEURA: The lungs are clear. No pleural effusions or pneumothorax. No pulmonary edema. CARDIAC/MEDIASTINUM: The cardiac silhouette is within normal limits. UPPER ABDOMEN: No significant abnormality. BONES: No acute abnormality. LINES/TUBES/OTHER: N/A IMPRESSION: No evidence of acute cardiopulmonary disease.
[2024-05-13] MEDS ORDERED: ACETAMINOPHEN 325 MG TABLET PO PRN ×2 (10:14→12:46)
[2024-05-13] MEDS ORDERED: SODIUM CHLORIDE 0.9% 10ML INJ IV PRN ×2 (10:14→12:46)
--- NOTE | 2024-05-13 10:30 | P.HP ---
Certification for Inpatient Patient admitted to: Observation With expected LOS: <2 Midnights Patient will require the following post-hospital care: None Practitioner: I am a practitioner with admitting privileges, knowledge of patient current condition, hospital course, and medical plan of care. Services: Services provided to patient in accordance with Admission requirements found in Title 42 Section 412.3 of the Code of Federal Regulations Patient History Date of Service: 05/13/24 Reason for admission: dyspepsia, severe neck pain History of Present Illness: Elsie Matamoros is a 48 year old female with Pmhx HTN, asthma, and GERD who presents to the ED with severe neck and throat pain overnight. She reports having GERD several years ago but is not currently being treated for it. She has reduced her heavy drinking three weeks ago with last social drink of wine 2 days ago. She reports being under alot of stress taking care of her at home while working. Laboratory evaluation unremarkable, Chest xray with no acute findings. Elsie will be admitted to observation for a cardiac workup and treatment of dyspepsia. Cardiology consulted. - Past Medical/Surgical History -: HTN -: Asthma -: GERD Past Surgical History: Patient denies surgical history - Social History Smoking Status: Never smoker Alcohol use: Yes CD- Drugs: No Review of Systems Other: per HPI Physical Examination - Physical Exam General: Alert, In no apparent distress, Oriented x3 HEENT: Atraumatic, Normocephalic Neck: Supple, 2+ carotid pulse no bruit Respiratory: Clear to auscultation bilaterally, Normal air movement Cardiovascular: No edema, Regular rate/rhythm, Normal S1 S2 Capillary refill: <2 Seconds Gastrointestinal: Normal bowel sounds, Soft and benign Musculoskeletal: No clubbing Integumentary: No rashes Neurological: Normal speech, Normal tone - Studies Laboratory Data (last 24 hrs) 05/13/24 05/13/24 05/13/24 07:29 07:29 07:29 WBC 4.20 L Hgb 13.0 Hct 38.6 Plt Count 221 PT 11.8 INR 1.04 Sodium 137 Potassium 3.8 BUN 11 Creatinine 0.96 Glucose 107 H Magnesium 1.9 Total Bilirubin 0.8 AST 15 ALT 21 Alkaline Phosphatase 68 Lipase 37 Assessment and Plan - Plan Assessment and Plan Dyspepsia Severe throat and neck pain r/o ACS -carafate, protonix IV BID -CLD -trend troponin -aspirin, statin -Lipid panel, A1C, TSH/Free T4 pending -ECHO -Cardiology consult -Asa, lipitor daily HTN -continue home medication -allergic to metoprolol GERD Asthma -reports not being treated presently Alcohol abuse -Reports quit heavy drinking 3 weeks ago -last drink of wine 2 days ago DVT ppx SCD full code LOS 24 hour OBS Discharge Plan: Home Plan to discharge in: 24 Hours - Advance Directives Does patient have a Living Will: No Does patient have a Durable POA for Healthcare: No
[2024-05-13] MEDS ORDERED: NA CHLORIDE 0.9% 1,000 ML IV SCH ×2 (11:00→13:00)
[2024-05-13] MEDS ORDERED: SUCRALFATE 1 GM TABLET PO SCH ×2 (11:30→13:00)
--- NOTE | 2024-05-13 12:29 | P.SSS ---
Patient History Date of Service: 05/13/24 Reason for admission: dyspepsia, severe neck pain History of Present Illness: Elsie Matamoros is a 48 year old female with Pmhx HTN, asthma, and GERD who presents to the ED with severe neck and throat pain overnight. She reports having GERD several years ago but is not currently being treated for it. She has reduced her heavy drinking three weeks ago with last social drink of wine 2 days ago. She reports being under alot of stress taking care of her at home while working. Laboratory evaluation unremarkable, Chest xray with no acute findings, EKG with no ST changes. Elsie will be admitted to observation for a cardiac workup and treatment of dys pepsia. Cardiology consulted. - Past Medical/Surgical History -: HTN -: Asthma -: GERD - Social History Smoking Status: Never smoker Alcohol use: Yes CD- Drugs: No Review of Systems Other: per HPI Physical Examination - Physical Exam General: Alert, In no apparent distress, Oriented x3 HEENT: Atraumatic, Normocephalic, PERRLA Neck: Supple, 2+ carotid pulse no bruit Respiratory: Clear to auscultation bilaterally, Normal air movement Cardiovascular: Normal pulses, Regular rate/rhythm, Normal S1 S2 Capillary refill: <2 Seconds Gastrointestinal: Normal bowel sounds, Soft and benign Musculoskeletal: No clubbing Integumentary: No rashes Neurological: Normal speech, Normal tone - Studies Laboratory Data (last 24 hrs) 05/13/24 05/13/24 05/13/24 07:29 07:29 07:29 WBC 4.20 L Hgb 13.0 Hct 38.6 Plt Count 221 PT 11.8 INR 1.04 Sodium 137 Potassium 3.8 BUN 11 Creatinine 0.96 Glucose 107 H Magnesium 1.9 Total Bilirubin 0.8 AST 15 ALT 21 Alkaline Phosphatase 68 Lipase 37 Treatment Summary: Assessment and Plan Dyspepsia Severe throat and neck pain r/o ACS -carafate, protonix IV BID -CLD -EKG: No obvious ST segment changes -trend troponin -Continuous telemetry -aspirin, statin -Lipid panel, A1C, TSH/Free T4 pending -ECHO ordered -Cardiology consult -Asa, lipitor daily HTN -continue home medication -allergic to metoprolol GERD Asthma -reports not being treated presently Alcohol abuse -Reports quit heavy drinking 3 weeks ago -last drink of wine 2 days ago Elsie Matamoros has decided to leave against medical advice and treatment. We have discussed the danger and limitations that will likely occur from leaving the hospital without treatment, specifically , stroke, and becoming unstable hemodynamically. She continued to refuse to stay. - Disposition Disposition: AMA-LEFT AGAINST MEDICAL ADVIC Condition: FAIR Followup: Randall Michel NP [Primary Care Provider] - Prvt As Needed
[2024-05-13 12:36] VITALS: TEMP 98.2; O2SAT 100
[2024-05-13 12:40] VITALS: BP 156/82
[2024-05-13] MEDS ORDERED: PANTOPRAZOLE 40 MG INJ IVP SCH ×2 (21:00)
[2024-05-13] MEDS ORDERED: ATORVASTATIN 40 MG TAB PO SCH ×2 (21:00)
[2024-05-14] MEDS ORDERED: ASPIRIN EC 81 MG TAB PO SCH ×2 (09:00)
== END 2024-05-13 15:08 | disposition left against medical advice (07) ==
LOC: ER 06:50 → ERHOLD 10:08 → ER 12:08
PROVIDERS: ADMIT Internal Medicine; ATTEND Internal Medicine
DX: R10.13 Epigastric pain (principal); M54.2 Cervicalgia; R07.0 Pain in throat; K21.9 Gastro-esophageal reflux disease without esophagitis; I10 Essential (primary) hypertension; J45.909 Unspecified asthma, uncomplicated; F10.10 Alcohol abuse, uncomplicated; Z53.29 Procedure and treatment not carried out because of patient's decision for other reasons
CPT/HCPCS: 36415; 71045; 80048; 80076; 81001; 83690; 83735; 83880; 84484; 85025; 85610; 93005; 96365; 96366; 96375; 99285; J2470; J3411; J7040

== ENCOUNTER 2024-05-16 10:43 | Emergency (ER) | payer SELFPAY ==
--- OUTSIDE RECORDS SUMMARY | 2024-05-16 10:46 | XMS REPORT | Continuity of Care Document ---
Author Name Unknown Address [address] [address] [address] [place] [address] Organization [facility] [place] Address [address] [address] [address] [place] [address] Care Team Providers Care Substation Designer Name Role Phone Randall Michel Attending Clinician Unavailable EMIL VARMA Attending Clinician Marquita vailable Payers Payer Name Policy Type Policy Number Effective Date Expirati on Date Source AETNA 53 [id number] 2020 00:00:00 [facility] Problems Condition Name Condition Details Condition Category Status Onset Date Resolution Date Last Treatment Date Treating Clinician Comments Source [id number] Mixed hyperlipid emia Problem [facility] [id number] Primary hypertensi on Problem [facility] Anxiety disorder Anxiety disorder, unspecifie d Problem [facility] [id number] Seasonal allergies Problem [facility] [id number] Controlled mild persistent asthma with allergic rhinitis Problem [facility] Allergies, Adverse Reactions, Alerts Allergy Name Allergy Type Status Severity Reaction(s) Onset Date Inactive Date Treating Clinician Comments Source 3475 Drug allergy Active nausea and vomiting [facility] Social History Social Habit Start Date Stop Date Quantity Comments Source Sex Assigned At [facility] History of Tobacco Use [facility] Smoking Status Start Date Stop Date Source Unknown if ever smoked Commo n [facility] Never Smoker [facility] Medications Ordered Medication Name Filled Medication Name Start Date Stop Date Current Medication? Ordering Clinician Indication Dosage Frequency Signature (SIG) Comments Components Source Macrobid 100 MG Macrobid 100 MG 3- 00:00: 00 No 1{capsu le_with _food} BID Macrobid 100 MG Atorvastati n Calcium 20 MG Atorvastati n [...] Comments Source Afluria Afluria 2021-01-07 11:32:00 Completed [facility] Afluria Afluria 2021-01-07 11:32:00 Completed [facility] Afluria Afluria 2021-01-07 11:32:00 Completed [facility] Adacel (Tdap) Adacel (Tdap) 2020-10-08 15:47:00 Completed [facility] Adacel (Tdap) Adacel (Tdap) 2020-10-08 15:47:00 Completed [facility] Adacel (Tdap) Adacel (Tdap) 2020-10-08 15:47:00 Completed [facility] Afluria Afluria Unknown Completed [facility] Adacel (Tdap) Adacel (Tdap) Unknown Completed Co mmon [facility] Afluria Afluria Unknown Completed [facility] Adacel (Tdap) Adacel (Tdap) Unknown Completed Co on [facility] Afluria Afluria Unknown Completed Common [facility] Adacel (Tdap) Adacel (Tdap) Unknown Completed Co on [facility] Afluria Afluria Unknown Completed Common [facility] Adacel (Tdap) Adacel (Tdap) Unknown Completed Co on [facility] Afluria Afluria Unknown Completed Common [facility] Adacel (Tdap) Adacel (Tdap) Unknown Completed Co on [facility] Afluria Afluria Unknown Completed Common [facility] Adacel (Tdap) Adacel (Tdap) Unknown Completed Co [facility] Vital Signs Vital Name Observation Time Observation Value Comments S ource height 2024-03-07 08:00:00 60 [in_i] Commo n [facility] weight 2024-03-07 08:00:00 116 [lb_av] Comm on [facility] bmi 2024-03-07 08:00:00 22.65 kg/m2 Comm on [facility] height 2023-11-23 09:00:00 60 [in_i] Commo n [facility] weight 2023-11-23 09:00:00 121 [lb_av] Comm on [facility] bmi 2023-11-23 09:00:00 23.63 kg/m2 Comm on [facility] blood pressure systolic 2023-11-23 09:00:00 128 mm[Hg] Common [facility] blood pressure diastolic 2023-11-23 09:00:00 84 mm[Hg] Common [facility] height 2023-11-23 09:00:00 60 [in_i] Commo n [facility] weight 2023-11-23 09:00:00 121 [lb_av] Comm on [facility] bmi 2023-11-23 09:00:00 23.63 kg/m2 Comm on [facility] blood pressure systolic 2023-11-23 09:00:00 128 mm[Hg] Common [facility] blood pressure diastolic 2023-11-23 09:00:00 84 mm[Hg] [facility] height 2023-09-28 11:20:00 60 [in_i] Commo n [facility] weight 2023-09-28 11:20:00 124.0 [lb_av] Co on [facility] temperature 2023-09-28 11:20:00 97.9 [degF] Com mon [facility] bmi 2023-09-28 11:20:00 24.21 kg/m2 Comm on [facility] oximetry 2023-09-28 11:20:00 99 % Commo n [facility] respiratory rate 2023-09-28 11:20:00 17 /min Common [facility] blood pressure systolic 2023-09-28 11:20:00 127 mm[Hg] [facility] blood pressure diastolic 2023-09-28 11:20:00 78 mm[Hg] [facility] height 2023-09-16 11:20:00 60 [in_i] Commo n [facility] weight 2023-09-16 11:20:00 127.0 [lb_av] Co mmon [facility] temperature 2023-09-16 11:20:00 98.2 [degF] Com mon [facility] bmi 2023-09-16 11:20:00 24.8 kg/m2 Commo n [facility] oximetry 2023-09-16 11:20:00 99 % Commo n [facility] respiratory rate 2023-09-16 11:20:00 17 /min [facility] blood pressure systolic 2023-09-16 11:20:00 137 mm[Hg] Common Spiri [facility] blood pressure diastolic 2023-09-16 11:20:00 80 mm[Hg[facility] height 2023-02-18 09:20:00 60 [in_i] Commo n [facility] weight 2023-02-18 09:20:00 143 [lb_av] Comm on [facility] bmi 2023-02-18 09:20:00 27.92 kg/m2 Comm on [facility] height 2023-01-19 13:00:00 60 [in_i] Commo n [facility] weight 2023-01-19 13:00:00 151.4 [lb_av] Co on [facility] temperature 2023-01-19 13:00:00 97.9 [degF] Com [facility] bmi 2023-01-19 13:00:00 29.57 kg/m2 Comm on [facility] oximetry 2023-01-19 13:00:00 98 % Commo n [facility] respiratory rate 2023-01-19 13:00:00 17 /min Common [facility] blood pressure systolic 2023-01-19 13:00:00 140 mm[Hg] Common [facility] blood pressure diastolic 2023-01-19 13:00:00 78 mm[Hg] Common [facility] height 2022-04-29 16:00:00 60 [in_i] Commo n [facility] weight 2022-04-29 16:00:00 149.0 [lb_av] Co mmon [facility] temperature 2022-04-29 16:00:00 97.9 [degF] Com mon [facility] bmi 2022-04-29 16:00:00 29.1 kg/m2 Commo n [facility] oximetry 2022-04-29 16:00:00 99 % Commo n [facility] respiratory rate 2022-04-29 16:00:00 18 /min Common [facility] blood pressure systolic 2022-04-29 16:00:00 138 mm[Hg] [facility] blood pressure diastolic 2022-04-29 16:00:00 88 mm[Hg] [facility] height 2021-10-28 16:20:00 60 [in_i] Commo n [facility] weight 2021-10-28 16:20:00 142.5 [lb_av] Co on [facility] temperature 2021-10-28 16:20:00 98.1 [degF] Com mon [facility] bmi 2021-10-28 16:20:00 27.83 kg/m2 Comm on [facility] oximetry 2021-10-28 16:20:00 100 % Commo n [facility] respiratory rate 2021-10-28 16:20:00 18 /min [facility] blood pressure systolic 2021-10-28 16:20:00 139 mm[Hg] [facility] blood pressure diastolic 2021-10-28 16:20:00 87 mm[Hg] [facility] height 2021-06-11 09:00:00 60 [in_i] Commo n [facility] weight 2021-06-11 09:00:00 137.2 [lb_av] Co mmon [facility] temperature 2021-06-11 09:00:00 97.9 [degF] Com mon [facility] bmi 2021-06-11 09:00:00 26.79 kg/m2 Comm on [facility] oximetry 2021-06-11 09:00:00 100 % Commo n [facility] respiratory rate 2021-06-11 09:00:00 18 /min [facility] blood pressure systolic 2021-06-11 09:00:00 128 mm[Hg] [facility] blood pressure diastolic 2021-06-11 09:00:00 80 mm[Hg] Common [facility] height 2021-02-10 13:00:00 60 [in_i] Commo n [facility] weight 2021-02-10 13:00:00 129.8 [lb_av] Co [facility] temperature 2021-02-10 13:00:00 96.8 [degF] Com mon [facility] bmi 2021-02-10 13:00:00 25.35 kg/m2 Comm on [facility] oximetry 2021-02-10 13:00:00 97 % Commo n [facility] respiratory rate 2021-02-10 13:00:00 18 /min [facility] blood pressure systolic 2021-02-10 13:00:00 130 mm[Hg] Common [facility] blood pressure diastolic 2021-02-10 13:00:00 84 mm[Hg] Common [facility] height 2021-01-07 11:20:00 60 [in_i] Commo n [facility] weight 2021-01-07 11:20:00 126.4 [lb_av] Co [facility] temperature 2021-01-07 11:20:00 97.2 [degF] Com [facility] bmi 2021-01-07 11:20:00 24.68 kg/m2 Comm on [facility] oximetry 2021-01-07 11:20:00 99 % Commo n [facility] respiratory rate 2021-01-07 11:20:00 18 /min Common [facility] blood pressure systolic 2021-01-07 11:20:00 140 mm[Hg] Common [facility] blood pressure diastolic 2021-01-07 11:20:00 100 mm[Hg] [facility] Encounters Start Date/Time End Date/Time Encounter Type Admission Type Attending Clinicians Care Facility Care Department Encounter ID Source 2024-05-08 11:37:00 Outpatient Michel, Avnee STLMLC ST[facility] [id number] [facility] 2024-05-04 11:02:00 Outpatient Michel, Avnee [facility]MLC [facility] [id number] [facility] 2024-05-03 08:41:00 Outpatient Michel, Avnee [facility]C [facility] [id number] [facility] 2024-05-01 14:36:00 Outpatient Michel, Avnee STLMLC [facility] [id number] [facility] 2023-11-24 15:52:00 Outpatient Michel, Avnee STLMLC ST[facility] [id number] [facility] 2023-11-18 16:17:00 Outpatient Michel, Avnee ST[facility]MLC ST[facility] [id number] [facility] 2023-08-10 10:56:00 Outpatient Michel, Avnee [facility]MLC [facility] [id number] [facility] 2023-08-06 11:11:00 Outpatient Michel, Avnee ST[facility]MLC ST[facility] [id number] [facility] 2023-02-18 08:44:00 Outpatient Michel, Avnee ST[facility]MLC ST[facility] [id number] [facility] 2023-02-16 09:38:01 Outpatient Michel, Avnee ST[facility]MLC ST[facility] [id number] [facility] 2023-01-15 13:41:00 Outpatient Michel, Avnee STLMLC ST[facility] [id number] [facility] 2022-05-04 14:09:01 Outpatient Michel, Avnee STLMLC ST[facility] [id number] [facility] 2022-04-27 08:06:00 Outpatient Michel, Avnee STLMLC ST[facility] [id number] [facility] 2021-10-27 14:59:02 Outpatient Michel Avnee STLMLC ST[facility] [id number] [facility] 2021-06-11 09:15:03 Outpatient Michel, Avnee ST[facility]MLC ST[facility] [id number] [facility] 2021-04-02 14:05:10 Outpatient Michel Avnee STLMLC ST[facility] [id number] [facility] 2021-04-02 13:34:23 Outpatient Michel, Avnee STLMLC ST[facility] [id number] [facility] 2021-04-02 13:33:56 Outpatient Michel Avnee STLMLC ST[facility] [id number] [facility] 2021-04-02 13:31:38 Outpatient MichelAdielnee STLMLC STL[facility]C [id number] [facility] 2021-04-02 13:30:30 Outpatient Michel Avnee STLMLC ST[facility] [id number] [facility] 2021-04-02 13:24:50 Outpatient ST[facility]C ST[facility] [id number] [facility] 2024-09-13 14:20:00 2024-09-13 14:20:00 Outpatient ASHLEY VARMA S [facility] [id number] [facility] 2024-05-15 00:00:00 2024-05-15 00:00:00 (TEL) STLMLC STLMLC [id number] [facility] 2024-03-07 00:00:00 2024-03-07 00:00:00 OFFICE VISIT ESTAB PT LEVEL 4 STLMLC STLMLC [id number] [facility] 2024-01-14 00:00:00 2024-01-14 00:00:00 (TEL) STLMLC STLMLC [id number] [facility] 2024-01-03 00:00:00 2024-01-03 00:00:00 (TEL) STLMLC STLMLC [id number] [facility] 2023-12-05 00:00:00 2023-12-05 00:00:00 (TEL) STLMLC STLMLC [id number] [facility] 2023-11-23 00:00:00 2023-11-23 00:00:00 OFFICE VISIT ESTAB PT LEVEL 3 STLMLC STLMLC [id number] [facility] 2023-10-18 00:00:00 2023-10-18 00:00:00 (TEL) STLMLC STLMLC [id number] [facility] 2023-10-13 00:00:00 2023-10-13 00:00:00 (TEL) STLMLC STLMLC [id number] [facility] 2023-09-28 00:00:00 2023-09-28 00:00:00 OFFICE VISIT ESTAB PT LEVEL 4 STLMLC STL[facility]C [id number] [facility] 2023-09-27 00:00:00 2023-09-27 00:00:00 (TEL) STLMLC STLMLC [id number] [facility] 2023-09-21 00:00:00 2023-09-21 00:00:00 (TEL) STLMLC STLMLC [id number] [facility] 2023-09-16 00:00:00 2023-09-16 00:00:00 PREV VISIT EST AGE 40-64 STLMLC STLMLC [id number] [facility] 2023-09-08 00:00:00 2023-09-08 00:00:00 (TEL) STLMLC STLMLC [id number] [facility] 2023-07-05 00:00:00 2023-07-05 00:00:00 (TEL) STLMLC STLMLC [id number] [facility] 2023-02-18 00:00:00 2023-02-18 00:00:00 OFFICE VISIT ESTAB PT LEVEL 3 STLMLC STLMLC [id number] [facility] 2023-01-21 00:00:00 2023-01-21 00:00:00 (TEL) STLMLC STLMLC [id number] [facility] 2023-01-19 00:00:00 2023-01-19 00:00:00 OFFICE VISIT ESTAB PT LEVEL 3 STLMLC STLMLC [id number] [facility] 2022-04-29 00:00:00 2022-04-29 00:00:00 OFFICE VISIT ESTAB PT LEVEL 3 STLMLC STLMLC [id number] [facility] 2021-10-28 00:00:00 2021-10-28 00:00:00 (WELLNESS) Wellness Visit STLMLC STLMLC [id number] [facility] 2021-10-13 00:00:00 2021-10-13 00:00:00 (TEL) STLMLC STLMLC [id number] [facility] 2021-10-08 00:00:00 2021-10-08 00:00:00 (TEL) STLMLC STLMLC [id number] [facility] 2021-06-11 00:00:00 2021-06-11 00:00:00 OFFICE VISIT EST PT LEVEL 3 STLMLC STLMLC [id number] [facility] 2021-06-09 00:00:00 2021-06-09 00:00:00 (TEL) STLMLC STLMLC [id number] [facility] 2021-02-10 00:00:00 2021-02-10 00:00:00 OFFICE VISIT EST PT LEVEL 3 STLMLC STLMLC [id number] [facility] 2021-01-07 00:00:00 2021-01-07 00:00:00 OFFICE VISIT ESTAB PT LEVEL 4 STLMLC STLMLC [id number] [facility] 2020-10-22 00:00:00 2020-10-22 00:00:00 Outpatient STLMLC STL[facility]C [id number] [facility] 2020-10-22 00:00:00 2020-10-22 00:00:00 Outpatient STLMLC STL[facility]C [id number] [facility] 2020-10-14 00:00:00 2020-10-14 00:00:00 Outpatient STLMLC STLMLC [id number] [facility] 2020-10-08 00:00:00 2020-10-08 00:00:00 Outpatient STLMLC STLMLC [id number] [facility] 2020-10-08 00:00:00 2020-10-08 00:00:00 Outpatient STLMLC STLMLC [id number] [facility] 2020-09-16 00:00:00 2020-09-16 00:00:00 Outpatient STLMLC STLMLC [id number] [facility] Results Test Description Test Time Test Comments Results Result Co mments Source CBC W/AUTO [id number] 00:00:00* Test Item Value Reference Range Interpretation Comme nts NUCLEATED RBCS (test code = 27596-9) 0.0 /100 WBC'S See_Comment [Automated messa ge] The system which generated this result transmitted reference range: 0.0 /100 WBC'S. The reference range was not used to interpret this result as normal/abnormal. ABSOLUTE EOSINOPHILS (test code = 81209-9) 0.06 K/UL See_Comment [Automated messa ge] The system which generated this result transmitted reference range: 0.00-0.50 K/UL. The reference range was not used to interpret this result as normal/abnormal. ABSOLUTE LYMPHOCYTES (test code = 74453-5) 1.02 K/UL See_Comment [Automated messa ge] The system which generated this result transmitted reference range: 1.00-4.00 K/UL. The reference range was not used to interpret this result as normal/abnormal. ABSOLUTE MONOCYTES (test code = 56449-8) 0.34 K/UL See_Comment [Automated messa ge] The system which generated this result transmitted reference range: 0.20-1.00 K/UL. The reference range was not used to interpret this result as normal/abnormal. ABSOLUTE NEUTROPHILS (test code = 00548-2) 2.52 K/UL See_Comment [Automated messa ge] The system which generated this result transmitted reference range: 1.50-7.50 K/UL. The reference range was not used to interpret this result as normal/abnormal. BASOPHILS (test code = 21761-7) 1.0 % EOSINOPHILS (test code = 95136-9) 1.5 % HEMATOCRIT (test code = 91059-3) 39.9 % See_Comment [Automated messa ge] The [...] result as normal/abnormal. LYMPHOCYTES (test code = 54528-3) 25.5 % MCH (test code = 65976-4) 32.4 PG See_Comment [Automated messa ge] The system which generated this result transmitted reference range: 25.0-33.0 PG. The reference range was not used to interpret this result as normal/abnormal. MCHC (test code = 86036-0) 34.8 G/DL See_Comment [Automated messa ge] The system which generated this result transmitted reference range: 31.0-36.0 G/DL. The reference range was not used to interpret this result as normal/abnormal. MCV (test code = 25458-0) 93.0 fL See_Comment [Automated messa ge] The system which generated this result transmitted reference range: 80.0-99.0 fL. The reference range was not used to interpret this result as normal/abnormal. MONOCYTES (test code = 07094-0) 8.5 % NEUTROPHILS (test code = 06184-5) 63.0 % PLATELET COUNT (test code = 11498-1) 192 K/UL See_Comment [Automated messa ge] The system which generated this result transmitted reference range: 130-400 K/UL. The reference range was not used to interpret this result as normal/abnormal. RBC (test code = 01876-4) 4.29 M/UL See_Comment [Automated messa ge] The system which generated this result transmitted reference range: 3.80-5.40 M/UL. The reference range was not used to interpret this result as normal/abnormal. RDW (test code = 46277-6) 12.2 % See_Comment [Automated messa ge] The system which generated this result transmitted reference range: 11.5-15.0 %. The reference range was not used to interpret this result as normal/abnormal. WBC (test code = 60520-2) 4.0 K/UL See_Comment [Automated messa ge] The system which generated this result transmitted reference range: 3.5-11.0 K/UL. The reference range was not used to interpret this result as normal/abnormal. CBC W/AUTO [id number] 00:00:00* Test Item Value Reference Range Interpretation Comme nts NUCLEATED RBCS (test code = 67618-9) 0.0 /100 WBC'S See_Comment [Automated messa ge] The system which generated this result transmitted reference range: 0.0 /100 WBC'S. The reference range was not used to interpret this result as normal/abnormal. ABSOLUTE EOSINOPHILS (test code = 14303-5) 0.09 K/UL See_Comment [Automated messa ge] The system which generated this result transmitted reference range: 0.00-0.50 K/UL. The reference range was not used to interpret this result as normal/abnormal. ABSOLUTE LYMPHOCYTES (test code = 43658-8) 1.35 K/UL See_Comment [Automated messa ge] The system which generated this result transmitted reference range: 1.00-4.00 K/UL. The reference range was not used to interpret this result as normal/abnormal. ABSOLUTE MONOCYTES (test code = 87906-3) 0.59 K/UL See_Comment [Automated messa ge] The system which generated this result transmitted reference range: 0.20-1.00 K/UL. The reference range was not used to interpret this result as normal/abnormal. ABSOLUTE NEUTROPHILS (test code = 77805-1) 4.21 K/UL See_Comment [Automated messa ge] The system which generated this result transmitted reference range: 1.50-7.50 K/UL. The reference range was not used to interpret this result as normal/abnormal. BASOPHILS (test code = 92685-8) 0.9 % EOSINOPHILS (test code = 47794-3) 1.4 % HEMATOCRIT (test code = 20996-2) 38.0 % See_Comment [Automated messa ge] The [...] result as normal/abnormal. LYMPHOCYTES (test code = 54911-5) 21.4 % MCH (test code = 47988-5) 32.3 PG See_Comment [Automated messa ge] The system which generated this result transmitted reference range: 25.0-33.0 PG. The reference range was not used to interpret this result as normal/abnormal. MCHC (test code = 50288-8) 33.9 G/DL See_Comment [Automated messa ge] The system which generated this result transmitted reference range: 31.0-36.0 G/DL. The reference range was not used to interpret this result as normal/abnormal. MCV (test code = 60043-9) 95.0 fL See_Comment [Automated messa ge] The system which generated this result transmitted reference range: 80.0-99.0 fL. The reference range was not used to interpret this result as normal/abnormal. MONOCYTES (test code = 37468-1) 9.3 % NEUTROPHILS (test code = 36473-3) 66.7 % PLATELET COUNT (test code = 11538-2) 256 K/UL See_Comment [Automated messa ge] The system which generated this result transmitted reference range: 130-400 K/UL. The reference range was not used to interpret this result as normal/abnormal. RBC (test code = 24588-1) 4.00 M/UL See_Comment [Automated messa ge] The system which generated this result transmitted reference range: 3.80-5.40 M/UL. The reference range was not used to interpret this result as normal/abnormal. RDW (test code = 42255-7) 12.3 % See_Comment [Automated [employer]] The system which generated this result transmitted reference range: 11.5-15.0 %. The reference range was not used to interpret this result as normal/abnormal. WBC (test code = 57836-6) 6.3 K/UL See_Comment [Automated [employer]] The system which generated this result transmitted reference range: 3.5-11.0 K/UL. The reference range was not used to interpret this result as normal/abnormal.
[2024-05-16 11:32] LABS: Absolute Eosinophils 0.1 K/uL (0-0.5); Absolute Lymphocytes (CBC) 0.8 K/uL (0.7-4.9); Absolute Monocytes 0.4 K/uL (0.1-1.3); Basophils % 0.5 % (0-1.3); Eosinophils % 1.1 % (0-4.4); Hematocrit 40.4 % (36.0-45.0); Lymphocytes % 15.8 % (15.3-44.8); MCHC 34.6 g/dL (32.0-36.0); MCV 92.5 fL (80-100); Monocytes % 7.9 % (3.3-12.3); Neutrophils % 74.7 % (41.7-73.7); Platelets 185 thou/uL (152-406); RBC Red Blood Cell Count 4.37 M/uL (3.86-4.86); Red Cell Distribution Width 12.5 % (12.1-15.2)
--- NOTE | 2024-05-16 11:50 | RAD REPORT ---
EXAMINATION: ONE VIEW CHEST XR CLINICAL INDICATION: Female, 48 years old.,CHEST PAIN TECHNIQUE: Frontal chest projection is submitted. Examination is limited by patient positioning and t echnique. COMPARISON: 05/13/2024 FINDINGS: The lungs are well inflated and clear. No pneumothorax or sizable effusion. The heart is normal in s ize. Mediastinal contours are unremarkable. Stable right rib deformities suggesting remote fractures. IMPRESSION: No acute intrathoracic abnormalities.
[2024-05-16 11:53] LABS: Anion Gap 8.2 mEq/L (5.0-15.0); BUN Blood Urea Nitrogen 7 mg/dL (7-18); Bicarbonate 32 mEq/L (21-32); Glomerular Filtration Rate 79 ml/min (=/>90); Glucose Level 107 mg/dL (74-106); Magnesium 1.8 mg/dL (1.6-2.4); NT PRO-BNP 136 pg/mL (<125); Potassium 3.2 mEq/L (3.5-5.1); Sodium Level 134 mEq/L (136-145)
[2024-05-16 11:54] LABS: Troponin High Sensitivity < 3.0 pg/mL (<58.9)
[2024-05-16] MEDS ORDERED: POTASSIUM CL SA 10 MEQ TAB PO ONE (13:03)
--- NOTE | 2024-05-16 14:08 | EDPHYS ---
Physician Documentation [facility] Name: Elsie Matamoros Age: 48 yrs Sex: Female : 1975 Arrival Date: 05/16/2024 Time: 10:43 Bed 18 Private MD: ED Physician Jaswinder Gale HPI: 05/16 14:00 This 48 yrs old Female presents to ER via Ambulatory with complaints of Chest Pain, rn Headache. 14:00 The patient or guardian reports chest pain that is located primarily in the chest rn diffusely. Duration: The patient or guardian reports multiple episodes. Patient seen and admitted recently over the weekend for chest pain, was diagnosed with dyspepsia and vitamin deficiencies. Patient states felt better after vitamin B infusion or injection, went home and then started to have chest pain again. Patient has anxiety and reports chest pain and associated with tingling of the arms and legs. Denies any fever or chills. No shortness of breath or cough. No hemoptysis. No history of DVT or PE. No abdominal pain.. 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 - Infectious Disease History:: Denies. - Social history:: Smoking status: Patient denies any tobacco usage or history of. - Family history:: not pertinent. - Hospitalizations: : The patient was recently seen at [facility]. ROS: 14:00 Constitutional: Negative for fever, chills, and weight loss, Eyes: Negative for injury, rn pain, redness, and discharge, ENT: Negative for injury, pain, and discharge, Neck: Negative for injury, pain, and swelling, Cardiovascular: Positive for chest pain Respiratory: Negative for shortness of breath, cough, wheezing, and pleuritic chest pain, Abdomen/GI: Negative for abdominal pain, nausea, vomiting, diarrhea, and constipation, MS/Extremity: Negative for injury and deformity, Skin: Negative for injury, rash, and discoloration, Neuro: Positive for tingling of hands and feet Exam: 14:00 Constitutional: This is a well developed, well nourished patient who is awake, alert, rn and in no acute distress. Cardiovascular: Regular rate and rhythm. No pulse deficits. Respiratory: No increased work of breathing, no retractions or nasal flaring. Abdomen/GI: Soft, non-tender MS/ Extremity: Pulses equal, no cyanosis. Neuro: Awake and alert, GCS 15 17:42 ECG was reviewed by the Attending Physician. rn Vital Signs: 10:48 BP 147 / 96; Pulse 76; Resp 16; Pulse Ox 100% on R/A; Weight 50.8 kg; Height 5 ft. 0 ss in. ; Pain 5/10; 11:30 Temp 98.3(O); cm10 12:30 BP 163 / 84; Pulse 67; Resp 15; Pulse Ox 100% on R/A; cm10 13:30 BP 163 / 94; Pulse 96; Resp 15; Pulse Ox 100% ; cm10 14:16 BP 165 / 96; Pulse 65; Resp 18; Temp 98.5(O); Pulse Ox 96% on R/A; cm10 10:48 Body Mass Index 21.87 (50.80 kg, 152.4 cm) ss 10:48 Pain Scale: Adult ss MDM: 10:46 Medical Screening Exam initiated rn 14:03 Differential diagnosis: acute pericarditis, anxiety, chest wall pain, costochondritis, rn esophagitis, gastritis, pleurisy, pneumothorax. HEART Score: History: Slightly Suspicious (0), ECG: Normal (0), Age: < or = 45 years (0), Risk Factors: No Risk Factors Known (0), Troponin: < or = 1 x Normal Limit (0), Total Score = 0. Data reviewed: vital signs, nurses notes, lab test result(s), EKG, radiologic studies, plain films, and as a result, I will discharge patient. Counseling: I had a detailed discussion with the patient and/or guardian regarding the historical points, exam findings, and any diagnostic results supporting the discharge/admit diagnosis, lab results, radiology results, the need for outpatient follow up, to return to the emergency department if symptoms worsen or persist or if there are any questions or concerns that arise at home. Special discussion: I discussed with the patient/guardian in detail that at this point there is no indication for admission to the hospital. It is understood, however, that if the symptoms persist or worsen the patient needs to return immediately for re-evaluation. ED course: No acute changes and workup. Patient much better. Patient is to continue antibiotics for UTI, replace potassium, will follow-up with PCP for repeat potassium testing. I have personally reviewed all of the results, including but not limited to blood tests and imaging deemed necessary to safely discharge this patient at this time. All results given to and printed out for patient. I personally went over all the results with the patient and answered all questions. Patient will follow-up with PCP and or specialist as discussed. Return precautions given and understood.. 05/16 11:15 Order name: Basic Metabolic Panel; Complete Time: 12:06 rn 05/16 11:15 Order name: CBC with Diff; Complete Time: 12: rn 05/16 11:15 Order name: Magnesium; Complete Time: 12: rn 05/16 11:15 Order name: NT PRO-BNP; Complete Time: 12: rn 05/16 11:15 Order name: Troponin HS; Complete Time: 12: rn 05/16 11:15 Order name: XRAY Chest (1 view); Complete Time: 12: rn 05/16 11:15 Order name: Cardiac monitoring; Complete Time: 11:15 rn 05/16 11:15 Order name: EKG - Nurse/Tech; Complete Time: 11:15 rn 05/16 11:15 Order name: IV Saline Lock; Complete Time: 11:30 rn 05/16 11:15 Order name: Labs collected and sent; Complete Time: 11:30 rn 05/16 11:15 Order name: O2 Per Protocol; Complete Time: 11:15 rn 05/16 11:15 Order name: O2 Sat Monitoring; Complete Time: 11:15 rn EC:42 Rate is 60 beats/min. Rhythm is regular. QRS [place] is Normal. [place] interval is normal. QRS rn interval is normal. QT interval is normal. No Q waves. T waves are Normal. No ST changes noted. Clinical impression: Normal ECG. Interpreted by me. Reviewed by me. Administered Medications: 13:07 Drug: Potassium Chloride PO 40 mEq PO once Route: PO; cm10 13:37 Follow up: Response: No adverse reaction cm10 Disposition Summary: 05/16/24 14:07 Discharge Ordered Notes: Location: Home rn Problem: an ongoing problem rn Symptoms: have improved rn Condition: Stable rn Diagnosis - Chest pain, unspecified rn - Paresthesia of skin rn Followup: rn - With: Private Physician - When: As needed - Reason: Recheck today's complaints, Re-evaluation by your physician Discharge Instructions: - Discharge Summary Sheet rn - Nonspecific Chest Pain, Adult rn - Pain Without a Known Cause rn - Paresthesia rn Forms: - Medication Reconciliation Form rn - Antibiotic administrative intern - Prescription Opioid Use rn - Patient Portal Instructions rn - Leadership Thank You Letter rn Signatures: Dispatcher [employer] EDMS Jaswinder Gale MD MD rn Blanchard, Shelby, RN RN ss Martinez, Clarissa, RN RN cm10 Corrections: (The following items were deleted from the chart) 11:16 11:16 BASIC METABOLIC PANEL+C.LAB.BRZ ordered. EDMS EDMS 11:16 11:16 CBC+H.LAB.BRZ ordered. EDMS EDMS 11:16 11:16 MAGNESIUM+C.LAB.BRZ ordered. EDMS EDMS 11:16 11:16 PROBNP+C.LAB.BRZ ordered. EDMS EDMS 11:16 11:16 Troponin High Sensitivity+C.LAB.BRZ ordered. EDMS EDMS 11:16 11:16 Chest Single View+RAD.RAD.BRZ ordered. EDMS EDMS
--- NOTE | 2024-05-16 14:08 | ER ---
Nurse's Notes [facility] Name: Elsie Matamoros Age: 48 yrs Sex: Female : 1975 Arrival Date: 05/16/2024 Time: 10:43 Bed 18 Private MD: Diagnosis: Chest pain, unspecified;Paresthesia of skin Presentation: 05/16 10:48 Chief complaint: Patient states: C/o headaches, nausea, chest pain, burning to feet and ss hands that pt was seen for on Wednesday and was diagnosed with a UTI and low B vitamins. PT reports she was given a Vitamin shot and abx and was feeling better until Wednesday after lunch and now all of her symptoms are back. Coronavirus screen: Client denies travel out of the [place] in the last 14 days. Ebola Screen: Patient denies exposure to infectious person. Patient denies travel to an Ebola-affected area in the 21 days before illness onset. Initial Sepsis Screen: Does the patient meet any 2 criteria? No. Patient's initial sepsis screen is negative. Does the patient have a suspected source of infection? No. Patient's initial sepsis screen is negative. Risk Assessment: Do you want to hurt yourself or someone else? Patient reports no desire to harm self or others. Onset of symptoms was May 13, 2024. 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 - Infectious Disease History:: Denies. - Social history:: Smoking status: Patient denies any tobacco usage or history of. - Family history:: not pertinent. - Hospitalizations: : The patient was recently seen at [facility]. Screenin:36 [facility] ED Fall Risk Assessment (Adult) History of falling in the last 3 months, cm10 including since admission No falls in past 3 months (0 pts) Confusion or Disorientation No (0 pts) Intoxicated or Sedated No (0 pts) Impaired Gait No (0 pts) Mobility Assist Device Used No (0 pt) Altered Elimination No (0 pt) Score/Fall Risk Level 0 - 2 = Low Risk Oriented to surroundings, Maintained a safe environment, Hourly rounding (assess needs \T\ fall precautionary measures) done. Abuse screen: Denies threats or abuse. Denies injuries from another. Nutritional screening: No deficits noted. Tuberculosis screening: No symptoms or risk factors identified. Assessment: 11:31 General: Appears in no apparent distress. General: Appears Behavior is calm, cm10 cooperative, appropriate for age. Pain: Complains of pain in chest Pain does not radiate. Pain currently is 5 out of 10 on a pain scale. at worst was 8 out of 10 on a pain scale. Quality of pain is described as aching, pressure, Pain began 1 day ago. Is intermittent. Neuro: No deficits noted. Neuro: Level of Consciousness is awake, alert, obeys commands, Oriented to person, place, time, situation. Cardiovascular: Reports chest pain, Heart tones present. Cardiovascular: Chest pain is described as Pain is 5 out of 10 on a pain scale. quality is pressure, is located in chest wall. Respiratory: No deficits noted. Derm: Skin is pink, warm \T\ dry. 13:35 Reassessment: Patient appears in no apparent distress at this time. Patient and/or cm10 family updated on plan of care and expected duration. Pain level reassessed. Patient is alert, oriented x 3, equal unlabored respirations, skin warm/dry/pink. Vital Signs: 10:48 BP 147 / 96; Pulse 76; Resp 16; Pulse Ox 100% on R/A; Weight 50.8 kg; Height 5 ft. 0 ss in. ; Pain 5/10; 11:30 Temp 98.3(O); cm10 12:30 BP 163 / 84; Pulse 67; Resp 15; Pulse Ox 100% on R/A; cm10 13:30 BP 163 / 94; Pulse 96; Resp 15; Pulse Ox 100% ; cm10 14:16 BP 165 / 96; Pulse 65; Resp 18; Temp 98.5(O); Pulse Ox 96% on R/A; cm10 10:48 Body Mass Index 21.87 (50.80 kg, 152.4 cm) ss 10:48 Pain Scale: Adult ss ED Course: 10:45 Patient arrived in ED. al6 10:45 Jaswinder Gale MD is Attending Physician. rn 10:50 Triage completed. ss 10:50 Arm band placed on right wrist. ss 10:57 Soo Garcia, RN is Primary Nurse. cm10 11:16 EKG done, by ED staff, reviewed by Jaswinder Gale MD. Patient maintains SpO2 saturation cm10 greater than 95% on room air. 11:29 XRAY Chest (1 view) In Process Unspecified. EDMS 11:36 Patient has correct armband on for positive identification. Placed in gown. Bed in low cm10 position. Call light in reach. Side rails up X2. Client placed on continuous cardiac and pulse oximetry monitoring. NIBP monitoring applied. order control clerk blood bank on. 11:36 Initial lab(s) drawn, by me, sent to lab. Inserted saline lock: 20 gauge in right cm10 antecubital area, using aseptic technique. Blood collected. Flushed with 10 mL NS. 14:18 Provided Education on: Follow- up instructions. cm10 14:18 No provider procedures requiring assistance completed. IV discontinued, intact, cm10 bleeding controlled, No redness/swelling at site. Pressure dressing applied. Administered Medications: 13:07 Drug: Potassium Chloride PO 40 mEq PO once Route: PO; cm10 13:37 Follow up: Response: No adverse reaction cm10 Medication: 11:36 VIS not applicable for this client. cm10 Outcome: 14:07 Discharge ordered by . rn 14:18 Discharged to home ambulatory, cm10 14:18 Condition: good 14:18 Discharge instructions given to patient, Instructed on discharge instructions, follow up and referral plans. Demonstrated understanding of instructions, follow-up care, 14:18 Patient left the ED. cm10 Signatures: Dispatcher [employer] EDCT Jaswinder Gale MD MD rn Blanchard, Shelby, RN RN ss Martinez, Clarissa, EMILY RN cm10 Meche [email or web address]
[2024-05-16 15:07] VITALS: BP 165/96; TEMP 98.5; O2SAT 96
--- NOTE | 2024-05-19 14:53 | EKG ---
Test Date: 2024-05-16 Test Time: 11:03:07 Dough Braker: MARISA MEASUREMENT RESULTS: Intervals: Rate: 60 TN: 134 QRSD: 86 QT: 438 QTc: 438 [place]: P: 79 TN: 134 QRS: 71 T: 86 INTERPRETIVE STATEMENTS: Normal sinus rhythm Normal ECG Compared to ECG 05/13/2024 07:20:22 No significant changes Electronically Signed On 05-19-24 14:44:09 CDT by Javan Day
== END 2024-05-16 14:18 | disposition home or self-care (01) ==
LOC: ER 10:43
DX: R07.9 Chest pain, unspecified (principal); R20.2 Paresthesia of skin
CPT/HCPCS: 36415; 71045; 80048; 83735; 83880; 84484; 85025; 93005; 99284